=== PATIENT | male | born 1945 | race Caucasian/White ===

== ENCOUNTER 2016-11-09 13:36 | Inpatient (IN) | payer MEDICARE, OTHER ==
[~2016-11-09] VITALS: Ht 182.9 cm; Wt 103.0 kg
--- NOTE | ~2016-11-09 | HP ---
ADMIT: 11/09/2016 RM/LOC: 532 [facility] MR#: [id number] [address] [facility] [address] [place], [place] [address] JAIRO BEAVER [address] [place] [address] History and Physical SEX: M AGE: 71 : 1945 DATE OF SERVICE: CHIEF COMPLAINT: Upper back pain. HISTORY OF PRESENT ILLNESS: Jairo is a very nice 71-year-old ashley, who sees my partner, Dr. Kristopher Ramos. He has a very complex history of coronary artery disease, atrial fibrillation, hypertension, type 2 diabetes mellitus as well as extensive fusions in his back, substantial pain as well as he does have some cognitive changes secondary to some traumas in the past. He was in his usual state of health until this morning. He developed some severe upper back pain, radiated over to the front. He did not have any chest pain per se, like cardiac chest pain. He had not hurt his back, he had not fallen or anything of that nature. However, he is very concerned about his heart, so therefore, he came to the ER. He was evaluated by Dr. Castillo Wilkins, who did do an appropriate evaluation, very concerning for potential dissection. He had a CT of the chest, abdomen, and pelvis with no evidence of dissection. However, interestingly, did have some esophageal thickening. Laboratory evaluation is remarkable for some hyponatremia as well as an elevated lipase as nearly 800. With his pain radiating to his back, he is given a presumptive diagnosis of pancreatitis and admitted to my service. I evaluated him in his room, in room 532 up on the floor. He could endorse the above history. He has no chest pain, shortness of breath, nausea or vomiting; however, he states he has been having a bunch of gas and really belching a lot lately. Other than that, nothing out of the ordinary. Does not hurt to push on his abdomen. He has no postprandial pain. Does not feel the pain is associated with anything that he eats and it just was sudden onset today. He otherwise has been taking his medications. He takes cyclobenzaprine intermittently as well as some tramadol, which he has been using more lately due to his chronic back pain, but nothing especially new or out of the ordinary. PAST MEDICAL HISTORY: 1. History of CABG, coronary artery disease. 2. Atrial fibrillation, aflutter. 3. Hypertension. 4. Hyperlipidemia. 5. Type 2 diabetes mellitus. 6. Multiple back surgeries. 7. Chronic pain. 8. Obstructive sleep apnea. 9. Gout. 10.GERD. 11.History of tobacco abuse. MEDICATIONS: 1. Colestipol 1000 mg twice daily. 2. Norvasc 10 mg daily. 3. Lopressor 100 mg twice daily. 4. Lisinopril 20 mg daily. 5. Glipizide 2.5 mg daily. ADMIT: 11/09/2016 RM/LOC: 532 [facility] MR#: [id number] [address] [place] [id number] JAIRO BEAVER [address] [place] [address] History and Physical SEX: M AGE: 71 : 1945 6. Cymbalta 300 mg twice daily. 7. Allopurinol 100 mg daily. 8. Metformin 1000 mg twice daily. 9. Cinnamon 1 capsule daily. 10.Claritin 10 mg daily. 11.Baby aspirin 81 mg daily. 12.Tikosyn 250 mcg twice daily. 13.Omeprazole 20 mg daily. 14.Fenofibrate 135 mg daily. 15.Tramadol 50 mg q.6h p.r.n. 16.Vitamin B12. 17.Testosterone. 18.Flonase. 19.Zetia. 20.Fish oil. 21.Vitamin C. 22.Maalox. 23.Tylenol. 24.Multivitamin. ALLERGIES: DARVOCET AND DEMEROL. FAMILY HISTORY: No family history of recurrent pancreatitis, is otherwise reviewed and is noncontributory to this. SOCIAL HISTORY: He is a previous smoker. He quit 30 years ago. He does not drink much at all. He probably drank one drink in the last six months. He is , and he is on disability due to his medical illness and cognitive changes. REVIEW OF SYSTEMS: Complete review of systems reviewed per HPI. PHYSICAL EXAMINATION: VITAL SIGNS: Blood pressure 155/81, pulse 80, respiratory rate is 19, temperature is 96 degrees, 94% on room air. GENERAL: He is alert and oriented x3. No acute distress. HEENT: Normocephalic, atraumatic. Eyes, extraocular muscles intact. Pupils equal and responsive to light. No nasal discharge. NECK: Supple. Trachea midline. HEART: Regular, actually today. LUNGS: Clear to auscultation. ABDOMEN: Soft, nontender, and nondistended. No rebound, no guarding. No masses are noted. EXTREMITIES: No clubbing or cyanosis. PSYCHIATRIC: No anxiety. LABORATORY AND IMAGING DATA: Hemoglobin is 14.6, white blood cells are 18.4, platelets are 313. Sodium is 126, potassium is 4.4, chloride is 88, bicarb is 23, BUN is 15, creatinine is 1.1. Glucose is 236, calcium is 9.7. Lipase is ADMIT: 11/09/2016 RM/LOC: 532 [facility] MR#: [id number] [address] [place] [id number] JAIRO BEAVER [address] [place] [address] History and Physical SEX: M AGE: 71 : 1945 719, troponin 0.015. CT with esophagitis, potentially noted to have esophageal thickening. Total protein is 8, albumin is 3.9, AST is 54, ALT is 51, alkaline phosphatase 87, bilirubin is 1. EKG is sinus. ASSESSMENT AND PLAN: 1. Presumed pancreatitis. 2. Hyponatremia. 3. Type 2 diabetes mellitus. 4. Atrial fibrillation. 5. Chronic pain. 6. Esophageal thickening. 7. Leukocytosis. The patient has a presumed diagnosis of pancreatitis, however, interestingly, he has no postprandial pain. He has no reproducible abdominal pain. He has no changes of pancreatitis on his CT scan, but he does have an elevated lipase of 720. This makes me believe that this may not truly represent pancreatitis, but may be elevated for an alternate reason. Concerningly, he does have an esophageal thickening on CT scan and most definitely will need an EGD at some point secondary to his history. He also does have a degree of hyponatremia. He does appear to be a little bit dry on examination and he does have a leukocytosis with no real evidence of infection at this time. I will go ahead and just trend out his cardiac enzymes. We will give him some gentle fluids at 100 mL an hour. I will place him on a clear diet if tolerated, and I am going to go ahead and repeat some imaging with the right upper quadrant ultrasound to evaluate his liver secondary to his elevated liver function tests as well as his elevated lipase. I will go ahead and add a sedimentation rate, CRP, and procalcitonin as well. He does not appear to be toxic or anything at this point either. I will hold his diabetic regimen. I will hold his antilipemic therapies as well secondary to his changes in his liver enzymes as well, and we will place him on supplemental scale for his insulin. He does wish to be a full code. I discussed this case with the family. Did educate them. I think we have more information that we need to obtain to really give him a clear diagnosis of exactly what he is experiencing; however, we will move forward with a presumed diagnosis at this time and we will adjust based on his clinical progress. Junior Hinojosa MD/ brooke JOB #: [id number] CC: Kristopher Ramos, Attending Physician Kristopher Ramos, Family Physician
[~2016-11-09 13:36] MED LIST: ASTELIN NASAL S30 ML NS; ATARAX-DPS25 MG PO; ATIVAN-DPS0.5 MG PO; CINNAMON500 MG PO; MAALOX DPS30 ML PO; MAG-OX400 MG PO; NITROSTAT0.4 MG SL; PEPCID DPS20 MG PO; TESTONE CI200 MG/1 M TP; THERA1 EACH PO; TRILIPIX135 MG PO; TYLENOL DPS325 MG PO; ZYLOPRIM-DPS300 MG PO
--- NOTE | 2016-11-10 15:49 | NUR ---
PT LATE AM SHUTS IV OFF AND DISCONNECTS IV FROM EXTENTION. DOES THIS X 2. IV TUBING CHANGED. APPLIED COBAN AND SLEEVE TO COVER.
--- NOTE | 2016-11-11 19:25 | ER ---
ADMIT: 11/09/2016 RM/LOC: ER [facility] MR#: [id number] [address] [facility] [address] [place], [place] [address] JAIRO BEAVER [address] [place] [address] Emergency Room Report SEX: M AGE: 71 : 1945 DATE: 11/09/2016 TIME: 1336 hours. Please refer to my T-sheet for complete H and P. Briefly, patient is a 71-year- old, who comes in with back pain, severe, kind of wraps around in a bandlike around his chest. He has a known history of coronary disease. He has had a bypass, has severe back problems, he has had 9 fusions he says. He says this feels just a little bit different than either of those. He does feel nauseous. Rates pain 10/10. He is here for evaluation. PHYSICAL EXAMINATION: VITAL SIGNS: His blood pressure 155/81, his pulse is 85, respirations 19, temp 97, and sats 96%. GENERAL: Mild distress. HEENT: Grossly normal. LUNGS: Clear. HEART: Regular. ABDOMEN: Tender in the epigastric and to the back. SKIN: No rash. EXTREMITIES: He has palpable pulses that are symmetrical and equal. NEUROLOGIC: Alert and oriented, nonfocal. EMERGENCY DEPARTMENT COURSE: CBC was normal except white count 18.4. Chemistries normal except sodium 126, glucose 236, and lipase 719. Cardiac enzymes negative. I did a CT angio of his chest, abdomen, and pelvis to rule out dissection, it was negative. EKG is sinus rhythm, rate 77, no changes. We gave him a liter of normal saline bolus, titrated morphine. His pain was improved. Dr. Ramos will admit. ASSESSMENT: 1. Acute pancreatitis. 2. Back pain, acute on chronic. 3. Hyponatremia. PLAN: Admit to the hospital. Castillo Wilkins MD/ brooke JOB #: [id number] CC: Castillo Wilkins MD, Attending Physician UNKNOWN, Family Physician
--- NOTE | 2016-11-12 10:38 | DS ---
ADMIT: 11/09/2016 RM/LOC: 532 [facility] MR#: [id number] [address] [facility] [address] [place], [place] [id number] JAIRO BEAVER [address] [place] [address] Discharge Summary SEX: M AGE: 71 : 1945 ADMISSION DATE: 11/09/2016 DISCHARGE DATE: 11/11/2016 CONSULTATIONS: None. PROCEDURES: None. FINAL DIAGNOSES: 1. Presumed pancreatitis resolved. 2. Increased liver function tests resolved. 3. Hyponatremia improving. 4. Back pain resolved. 5. Hypomagnesemia. 6. Esophageal thickening. 7. Type 2 diabetes mellitus. REASON FOR ADMISSION: Please see H and P dictated. However, briefly, admitted with some back pain and some abnormal laboratories. HOSPITAL COURSE: Admitted to the service of [facility] under the care of myself, Junior Hinojosa MD. Underwent appropriate evaluation for his admitting symptoms. Care is transitioned to his primary care doctor, Dr. Kristopher Ramos, who does further improve his electrolyte abnormalities. I do see him again on the morning of November 11. He had a very long night, he did sleep well. However, he has no pain in his back, no abdominal pain. His exam is benign. He is noted to have some hypomagnesemia which we will replace. Did discuss with his that I feel it is prudent to undergo outpatient EGD for his esophageal thickening. With his electrolyte disturbances, this potentially could be nutritional in etiology. We will continue to advance his diet, ensure that he does eat a varied complete diet as an outpatient. I would like them to come back on Sunday to [facility] for repeat laboratories as well as he will see Dr. Ramos for an outpatient EGD. If they have recurrence of their symptoms, they are to contact us for further directions. DISPOSITION: Home. DISCHARGE CONDITION: Stable. ADMIT: 11/09/2016 RM/LOC: 532 [facility] MR#: [id number] [address] [facility] [address] [place], [place] [address] JAIRO BEAVER [address] [place] [address] Discharge Summary SEX: M AGE: 71 : 1945 DISCHARGE MEDICATIONS: See medication reconciliation, it is reviewed and accurate. DISCHARGE INSTRUCTIONS: Discharge to home. Continue to advance diet. New medications of oral magnesium replacement. Follow up with Dr. Ramos in one weeks' time. Repeat laboratories on Sunday at [facility]. Discussed this plan with the patient, expressed understanding, was in agreement, and had no further questions. Thirty minutes spent on discharge activities of this patient. Junior Hinojosa MD/ ciarra JOB #: [id number] CC: Kristopher Ramos MD, Attending Physician Kristopher Ramos MD, Family Physician Kristopher Ramos MD
[2016-11-12] MEDS ORDERED: CHOLESTIPOL PO (12:52)
[2016-11-12] MEDS ORDERED: [UNRECOGNIZED DRUG - OTHER] PO (12:53)
[2016-11-12] MEDS ORDERED: CYMBALTA30 MG PO (12:54)
[2016-11-12] MEDS ORDERED: SYNTHROID DP0.075 MG PO (12:55)
[2016-11-12] MEDS ORDERED: MAG-OX400 MG PO (13:00)
[2017-03-15] MEDS ORDERED: NORVASC5 MG PO (14:10)
[2017-03-15] MEDS ORDERED: ZESTRIL DPS20 MG PO (14:10)
[2017-03-15] MEDS ORDERED: LOPRESSOR DPS100 MG PO (14:10)
[2017-03-15] MEDS ORDERED: COLESTID1 GM PO (14:10)
[2017-03-15] MEDS ORDERED: GLUCOPHAGE-DPS500 MG PO (14:11)
[2017-03-15] MEDS ORDERED: ZYLOPRIM-DPS100 MG PO (14:11)
[2017-03-15] MEDS ORDERED: CLARITIN DPS10 MG PO (14:11)
[2017-03-15] MEDS ORDERED: TIKOSYN125 MCG PO (14:12)
[2017-03-15] MEDS ORDERED: ASPIRIN EC81 MG PO (14:12)
[2017-03-15] MEDS ORDERED: PRILOSEC DPS20 MG PO (14:12)
[2017-03-15] MEDS ORDERED: ULTRAM DPS50 MG PO (14:13)
[2017-03-15] MEDS ORDERED: ANDROGEL2.5 G1 TP (14:13)
[2017-03-15] MEDS ORDERED: CYANOCOBAL1000 MCG/1 SQ (14:13)
[2017-03-15] MEDS ORDERED: FLONASE 0.05% D16 GM NS (14:13)
[2017-03-15] MEDS ORDERED: VITAMIN C500 M2 PO (14:14)
[2017-03-15] MEDS ORDERED: ZETIA10 MG PO (14:14)
[2017-03-15] MEDS ORDERED: OMEGA-3 DPS1000 MG PO (14:14)
== END 2016-11-11 14:05 | disposition home or self-care (01) | DRG 439 ==
LOC: ER 13:36 → 5MS 15:20
PROVIDERS: ADMIT Internal Medicine
DX: K85.90 Acute pancreatitis without necrosis or infection, unspecified (principal); E87.1 Hypo-osmolality and hyponatremia; I48.92 Unspecified atrial flutter; F03.90 Unspecified dementia, unspecified severity, without behavioral disturbance, psychotic disturbance, mood disturbance, and anxiety; K22.8 Other specified diseases of esophagus; D72.829 Elevated white blood cell count, unspecified; E11.9 Type 2 diabetes mellitus without complications; I25.10 Atherosclerotic heart disease of native coronary artery without angina pectoris; M10.9 Gout, unspecified; I48.91 Unspecified atrial fibrillation; R79.89 Other specified abnormal findings of blood chemistry; E83.42 Hypomagnesemia; I10 Essential (primary) hypertension; E78.5 Hyperlipidemia, unspecified; G89.29 Other chronic pain; G47.33 Obstructive sleep apnea (adult) (pediatric); K21.9 Gastro-esophageal reflux disease without esophagitis; Z95.1 Presence of aortocoronary bypass graft; Z98.1 Arthrodesis status; Z87.891 Personal history of nicotine dependence; Z79.84 Long term (current) use of oral hypoglycemic drugs; Z79.82 Long term (current) use of aspirin